=== PATIENT | female | born 1970 | race Caucasian/White ===

== ENCOUNTER 2024-07-23 08:54 | Outpatient (CLI) | payer BC | END 2024-07-23 08:55 | disposition home or self-care (01) | LOC: CSHMAMMO 08:54 | PROVIDERS: ATTEND Internal Medicine | DX: Z12.31 Encounter for screening mammogram for malignant neoplasm of breast (principal); N63.10 Unspecified lump in the right breast, unspecified quadrant | CPT/HCPCS: 77063; 77067 ==